=== PATIENT | male | born 1990 | race Caucasian/White ===

== ENCOUNTER → 2018-01-20 10:10 | Outpatient (CLI) | payer OTHER, SELFPAY ==
[2018-01-20 11:59] LABS: Absolute Lymphocyte Count 2.27 X10^3/ul (0.83-4.51); Absolute Neutrophil Count 3.8 X10^3/uL (2.0-7.7); Basophil# 0.01 X10^3/uL; Basophil% 0.1 % (0-1); Eosinophil# 0.26 X10^3/uL; Eosinophils% 3.8 % (0-5); Hemoglobin 15.1 g/dl (13.0-16.5); Lymphocyte # 2.27 X10^3/ul (4.0); Lymphocyte % 33.5 % (19-41); Mean Corp Hgb Conc 32.1 g/gl (32-36); Mean Corpuscular Hgb 28.6 pg (27.0-32.0); Mean Platelet Vol. 11.9 fl (6.2-12.0); Monocyte# 0.43 X10^3/uL; Monocyte% 6.3 % (0-10); Neutrophil # 3.79 X10^3/uL (2.7-7.7); POSITIVE COUNT NO; POSITIVE DIFFERENTIAL NO; POSITIVE MORPHOLOGY NO; Platelet Count 213 K/mm3 (150-450); RBC Distribution Width CV 14.1 % (11.6-14.6); RBC Distribution Width SD 45.6 fl (35.1-43.9); Red Blood Count 5.28 M/mm3 (4.6-6.2); White Blood Count 6.8 K/mm3 (4.4-11.0)
[2018-01-20 12:31] LABS: Microalbumin,Random Urine 30.3 mg/L (NO RANGE EST.); Microalbumin:Creatinine Ratio 36.6 mg/g CRE (<30 mg/g CRE)
[2018-01-20 12:41] LABS: ALB/GLOB Ratio 0.8 RATIO (0.9-2.4); AST(SGOT) 33 U/L (15-37); Alanine Aminotransfer ALT/SGPT 68 U/L (16-61); Albumin, Serum 3.3 g/dL (3.2-5.0); Alkaline Phosphatase 98 U/L (45-117); Anion Gap 8 (5-15); BUN 11 mg/dL (7-18); BUN/Creat Ratio 14.8 RATIO (10-20); Calcium,Total 8.9 mg/dL (8.5-10.1); Chloride 103 mmol/L (98-107); Cholesterol 192 mg/dL (200); Creatinine, Serum 0.74 mg/dL (0.70-1.30); EST Glomerular Filtration Rate 132 mL/min (>60); Est Glom Filt Rate - Afr Amer 160 mL/min (>60); Globulin 4.3 g/dL (2.2-4.2); Glucose 321 mg/dL (74-106); High Density Lipoprotein 26 mg/dL; Potassium 4.3 mmol/L (3.5-5.1); Protein, Total 7.6 g/dL (6.4-8.2); Sodium Level 138 mmol/L (136-145); Thyroid Stim Hormone (TSH) 1.73 uIU/mL (0.358-3.74)
== END ==
PROVIDERS: Family Provider Family Medicine; PCP Family Medicine; Visit Provider Family Medicine
DX: E11.9 Type 2 diabetes mellitus without complications (principal)
CPT/HCPCS: 36415; 80053; 82043; 82465; 82570; 83718; 84443; 85025

== ENCOUNTER 2018-04-13 15:40 | Outpatient (RCR) | payer MEDICAID, SELFPAY | END 2018-04-19 23:59 | LOC: DC 15:40 | PROVIDERS: Family Provider Family Medicine; PCP Family Medicine; Visit Provider Family Medicine | DX: E11.9 Type 2 diabetes mellitus without complications (principal); Z71.3 Dietary counseling and surveillance | CPT/HCPCS: G0108 ==

== ENCOUNTER 2019-04-23 13:04 | Emergency (ER) | payer BC, SELFPAY ==
[2019-04-23 13:05] VITALS: BP 155/80; PULSE 86; RESP 18; TEMP 36.6; O2SAT 95; BMI 57.9
--- NOTE | 2019-04-23 14:38 | EKG12_ITS ---
Test Reason : Blood Pressure : / mmHG Vent. Rate : 074 BPM Atrial Rate : 074 BPM P-R Int : 146 ms QRS Dur : 102 ms QT Int : 384 ms P-R-T Axes : 019 021 010 degrees QTc Int : 426 ms Normal sinus rhythm Normal ECG Confirmed by TUNDE HENDERSON, JAZ ([id number]), editor department DIANA COUGHLIN ([id number]) on 04/26/2019 10:17:01 AM Referred By: NOEMI Confirmed By:JAZ GRIFFITHS MD
--- NOTE | 2019-04-23 14:39 | ED.VIS.GEN ---
History of Present Illness Chief Complaint: Abd Pain Detail of Chief Complaint: Epigastric pain Informant: Patient Onset: Days Context: Gradual Onset Current Severity: Mild Maximum Severity: Mild Narrative: Patient presents with a couple day history of epigastric pain. He describes as a burning sensation. He thinks it slightly worsens with food. He denies history of reflux. He denies a history of pancreatitis or any recent alcohol consumption. No fever or chills. Only abdominal surgery was a periumbilical hernia repair. Past Medical History - Allergies and Home Meds Allergies/Adverse Reactions: Allergies erythromycin base Allergy (Verified 04/23/19 13:05) Hives lisinopril Allergy (Verified 04/23/19 13:05) Other Primary Care Physician: Librado Neal MD [Primary Care Provider] - Prior records reviewed: Yes Past Medical History: - - Reviewed Surgical History: - - Umbilical hernia Lives: With Family Smoking Status: Never smoker Review of Systems General: Denies: Chills, Fever Eyes: Denies: Visual changes - bilaterally ENT: Denies: Bilateral ear pain Cardiovascular: Denies: Chest pain Respiratory: Denies: Dyspnea, Cough Gastrointestinal: Reports: Abdominal pain, Nausea. Denies: Vomiting Genitourinary: Denies: Dysuria Musculoskeletal: Denies: Back pain Skin: Denies: Rash Neurological: Denies: Headache Hematologic: Denies: Easy bruising Allergy: Denies: Uticaria Physical Exam Vital Signs/Narrative: Vital Signs Temp Pulse Resp BP Pulse Ox 04/23/19 13:05 98 F 86 18 155/80 H 95 Inital Vital Signs reviewed: Yes General: Well nourished, Well developed ENT: Moist mucous membranes Cardiovascular: Regular rate, Regular rhythm Respiratory: No distress, CTA bilaterally Abdomen: Soft, Tender - Epigastric tenderness. Negative for: Guarding, Rebound tenderness Back: Nontender Extremities: Nontender Skin: Normal color Neurological: Alert, Oriented x3 Psychological: Normal affect Diagnostic/Tx/Re-eval Laboratory Results 04/23/19 04/23/19 14:47 14:47 WBC 9.4 RBC 5.49 Hgb 15.5 Hct 47.9 MCV 87.2 MCH 28.2 MCHC 32.4 RDW Std Deviation 46.5 H RDW Coeff of Pedro 14.6 Plt Count 213 MPV 10.7 Immature Gran % (Auto) 0.300 Neut % (Auto) 64.2 Lymph % (Auto) 26.1 [place] % (Auto) 6.5 Eos % (Auto) 2.7 Baso % (Auto) 0.2 Absolute Neuts (auto) 6.0 Absolute Lymphs (auto) 2.45 Nucleated RBC % 0 Sodium 142 Potassium 4.0 Chloride 108 H Carbon Dioxide 27.0 Anion Gap 7 BUN 16 Creatinine 0.77 Estim Creat Clear Calc 144.84 Est GFR (MDRD) Af Amer 151 Est GFR (MDRD) Non-Af 125 BUN/Creatinine Ratio 20.7 H Glucose 121 H Calcium 9.0 Total Bilirubin 0.40 Direct Bilirubin 0.05 AST 23 ALT 50 Alkaline Phosphatase 87 Total Protein 7.2 Albumin 3.3 Globulin 3.9 Lipase 227 - EKG Initial EKG Interpretation: Sinus Rhythm - Sinus at 74 with no sign of ischemia. - Medical Decision Making Patient was given a GI cocktail. On repeat evaluation he does feel improved. He will be given a prescription for Prilosec. ED Disposition - Plan for ED Patient: Disposition: Home or Assisted Living Diagnosis: Gastritis Instructions: GASTRITIS (Adult) Prescriptions: Omeprazole [Prilosec] 20 mg PO DAILY #30 capsule Referrals: Librado Neal MD [Primary Care Provider] - 10-14 Days if not better
[2019-04-23 14:55] LABS: Absolute Lymphocyte Count 2.45 X10^3/uL (0.83-4.51); Basophil# 0.02 X10^3/uL; Basophil% 0.2 % (0-1); Eosinophil# 0.25 X10^3/uL; Eosinophils% 2.7 % (0-5); Hematocrit 47.9 % (40-54); Hemoglobin 15.5 g/dL (13.0-16.5); Lymphocyte # 2.45 X10^3/ul (4.0); Lymphocyte % 26.1 % (19-41); Mean Corp Hgb Conc 32.4 g/dL (32-36); Mean Corpuscular Hgb 28.2 pg (27.0-32.0); Mean Corpuscular Volume 87.2 fL (80-94); Mean Platelet Vol. 10.7 fl (6.2-12.0); Monocyte# 0.61 X10^3/uL; Monocyte% 6.5 % (0-10); NRBC Flagged by Analyzer 0 % (0-5); Neutrophil # 6.04 X10^3/uL (2.7-7.7); Neutrophil % 64.2 % (47-70); Platelet Count 213 K/mm3 (150-450); RBC Distribution Width CV 14.6 % (11.6-14.6); RBC Distribution Width SD 46.5 fl (35.1-43.9); Red Blood Count 5.49 M/mm3 (4.6-6.2); White Blood Count 9.4 K/mm3 (4.4-11.0)
[2019-04-23] MEDS: Mag Hydrox/Al Hydrox/Simeth 30 ML UDC PO (14:58)
[2019-04-23] MEDS: 0.9% Normal Saline 1,000 ML 150 ML IV (14:58)
[2019-04-23 15:13] LABS: AST(SGOT) 23 U/L (15-37); Alanine Aminotransfer ALT/SGPT 50 U/L (16-61); Albumin, Serum 3.3 g/dL (3.2-5.0); Alkaline Phosphatase 87 U/L (45-117); Anion Gap 7 (5-15); BUN 16 mg/dL (7-18); BUN/Creat Ratio 20.7 RATIO (10-20); Bilirubin, Direct 0.05 mg/dL (0.00-0.30); Chloride 108 mmol/L (98-107); Creatinine, Serum 0.77 mg/dL (0.70-1.30); EST Glomerular Filtration Rate 125 mL/min (>60); Est Glom Filt Rate - Afr Amer 151 mL/min (>60); Estimated Creatinine Clearance 144.84 ml/min; Globulin 3.9 g/dL (2.2-4.2); Glucose 121 mg/dL (74-106); Lipase 227 U/L (73-393); Protein, Total 7.2 g/dL (6.4-8.2); Sodium Level 142 mmol/L (136-145)
[2019-04-23 16:20] VITALS: BP 127/82; PULSE 79; RESP 18; O2SAT 93
== END 2019-04-23 16:21 | disposition home or self-care (01) ==
PROVIDERS: Emergency Provider Emergency Medicine; Family Provider Family Medicine; PCP Family Medicine
DX: K29.70 Gastritis, unspecified, without bleeding (principal); Z79.899 Other long term (current) drug therapy; Z88.1 Allergy status to other antibiotic agents; Z88.8 Allergy status to other drugs, medicaments and biological substances
CPT/HCPCS: 80048; 80076; 83690; 85025; 93005; 96360; 99285; J7030; A4216

== ENCOUNTER → 2019-06-08 13:06 | Outpatient (CLI) | payer BC, SELFPAY ==
[2019-06-08 14:18] LABS: Microalbumin,Random Urine 19.8 mg/L (NO RANGE EST.); Microalbumin:Creatinine Ratio 17.5 mg/g CRE (<30 mg/g CRE)
[2019-06-08 14:49] LABS: Hemoglobin A1c 7.1 % (4.2-6.3)
[2019-06-08 14:55] LABS: ALB/GLOB Ratio 0.7 RATIO (0.9-2.4); AST(SGOT) 29 U/L (15-37); Alanine Aminotransfer ALT/SGPT 47 U/L (16-61); Albumin, Serum 3.1 g/dL (3.2-5.0); Alkaline Phosphatase 88 U/L (45-117); Anion Gap 6 (5-15); BUN 10 mg/dL (7-18); Calcium,Total 9.1 mg/dL (8.5-10.1); Chloride 105 mmol/L (98-107); Cholesterol 195 mg/dL (200); Creatinine, Serum 0.59 mg/dL (0.70-1.30); EST Glomerular Filtration Rate 171 mL/min (>60); Est Glom Filt Rate - Afr Amer 207 mL/min (>60); Globulin 4.3 g/dL (2.2-4.2); Glucose 122 mg/dL (74-106); High Density Lipoprotein 36 mg/dL; Potassium 4.2 mmol/L (3.5-5.1); Protein, Total 7.4 g/dL (6.4-8.2); Sodium Level 140 mmol/L (136-145); Triglycerides 181 mg/dL; Very Low Density Lipoprotein 36 mg/dL (5-40)
== END ==
LOC: LAB 13:09
PROVIDERS: Family Provider Family Medicine; PCP Family Medicine; Referring Provider Family Medicine; Visit Provider Family Medicine
DX: E11.9 Type 2 diabetes mellitus without complications (principal)
CPT/HCPCS: 36415; 80053; 80061; 82043; 82570; 83036

== ENCOUNTER → 2019-10-16 10:30 | Outpatient (CLI) | payer BC, SELFPAY ==
[2019-10-16 12:49] LABS: ALB/GLOB Ratio 0.7 RATIO (0.9-2.4); AST(SGOT) 16 U/L (15-37); Alanine Aminotransfer ALT/SGPT 36 U/L (16-61); Albumin, Serum 3.4 g/dL (3.2-5.0); Alkaline Phosphatase 97 U/L (45-117); Anion Gap 6 (5-15); BUN 14 mg/dL (7-18); BUN/Creat Ratio 18.8 RATIO (10-20); Calcium,Total 9.3 mg/dL (8.5-10.1); Chloride 107 mmol/L (98-107); Cholesterol 217 mg/dL (200); Creatinine, Serum 0.74 mg/dL (0.70-1.30); EST Glomerular Filtration Rate 130 mL/min (>60); Est Glom Filt Rate - Afr Amer 157 mL/min (>60); Globulin 4.8 g/dL (2.2-4.2); Glucose 132 mg/dL (74-106); High Density Lipoprotein 44 mg/dL; Protein, Total 8.2 g/dL (6.4-8.2); Sodium Level 139 mmol/L (136-145); Thyroid Stim Hormone (TSH) 1.58 uIU/mL (0.358-3.74); Triglycerides 181 mg/dL; Very Low Density Lipoprotein 36 mg/dL (5-40)
[2019-10-16 12:53] LABS: Hemoglobin A1c 6.8 % (4.2-6.3)
[2019-10-16 13:27] LABS: Microalbumin,Random Urine 11.7 mg/L (NO RANGE EST.); Microalbumin:Creatinine Ratio 14.5 mg/g CRE (<30 mg/g CRE)
== END ==
PROVIDERS: PCP Family Medicine; Referring Provider Family Medicine; Visit Provider Family Medicine
DX: E11.9 Type 2 diabetes mellitus without complications (principal)
CPT/HCPCS: 36415; 80053; 80061; 82043; 82570; 83036; 84443

== ENCOUNTER → 2020-04-09 11:57 | Outpatient (CLI) | payer BC, SELFPAY ==
[2020-04-09 15:40] LABS: ALB/GLOB Ratio 0.8 RATIO (0.9-2.4); AST(SGOT) 19 U/L (15-37); Alanine Aminotransfer ALT/SGPT 42 U/L (16-61); Albumin, Serum 3.4 g/dL (3.2-5.0); Alkaline Phosphatase 88 U/L (45-117); Anion Gap 3 (5-15); BUN 13 mg/dL (7-18); BUN/Creat Ratio 20.6 RATIO (10-20); Calcium,Total 9.1 mg/dL (8.5-10.1); Chloride 106 mmol/L (98-107); Cholesterol 204 mg/dL (200); Creatinine, Serum 0.63 mg/dL (0.70-1.30); EST Glomerular Filtration Rate 157 mL/min (>60); Est Glom Filt Rate - Afr Amer 190 mL/min (>60); Globulin 4.2 g/dL (2.2-4.2); Glucose 169 mg/dL (74-106); High Density Lipoprotein 36 mg/dL; Potassium 4.3 mmol/L (3.5-5.1); Protein, Total 7.6 g/dL (6.4-8.2); Sodium Level 140 mmol/L (136-145)
== END ==
PROVIDERS: PCP Family Medicine; Referring Provider Family Medicine; Visit Provider Family Medicine
DX: E11.9 Type 2 diabetes mellitus without complications (principal)
CPT/HCPCS: 36415; 80053; 82465; 83718

== ENCOUNTER → 2024-02-02 | Outpatient (CLI) | payer MEDICAID, SELFPAY ==
--- NOTE | 2024-02-02 06:57 | RAD_ITS ---
EXAM: XR LUMBOSACRAL SPINE, 4 OR 5 VIEWS CLINICAL INDICATION: PARESTHESIA OF EXTREMITIES -- -- BEST IMAGES POSSIBLE DUE TO PT HABITUS TECHNIQUE: Frontal, lateral and bilateral oblique views of the lumbar spine. COMPARISON: No relevant prior studies available. FINDINGS: LIMITATIONS: Very large body habitus significantly limits the exam. VERTEBRAE: Unremarkable. Preserved vertebral body height. No fracture. No spondylolisthesis. Preservation of the normal lumbar lordosis. No significant facet arthropathy. DISC SPACES: No acute findings. Disc spaces are maintained. GASTROINTESTINAL TRACT: Unremarkable as visualized. Included bowel gas pattern is non-obstructive. RAD/L/S Spine Min 4 Views IMPRESSION: Large body habitus limits the exam. No specific abnormality. Electronically Signed: Ricky Yeboah MD at 7:49 EDT ,
--- NOTE | 2024-02-02 15:15 | NEURO ---
NCS and/or EMG Patient Report Ordering Doctor: Sanju Diaz DATE OF SERVICE: 02/02/24 Skyler Presents with complaints of intermittent numbness and tingling in the lower legs. He does report history of diabetes. Electrodiagnostic findings: Right peroneal motor nerve demonstrates normal distal latency, amplitude and conduction velocity. Left peroneal motor nerve demonstrates normal distal latency, amplitude and conduction velocity. Right tibial motor nerve demonstrates normal distal latency with reduced amplitude and normal conduction velocity left tibial motor nerve demonstrates normal distal latency with reduced amplitude and normal conduction velocity. Normal peroneal and tibial F?waves. 1H?reflex bilaterally. Normal sural, superficial peroneal and medial plantar response bilaterally. Needle EMG testing was performed in the lower limbs. All muscles tested showed no evidence of denervation with normal motor unit action potentials. Electrodiagnostic impression: This is an abnormal study of the lower limbs 1. 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 There is no electrodiagnostic evidence for tarsal tunnel syndrome. This could be potentially related to his history of diabetes and may be initial evidence of developing polyneuropathy. Would consider repeat study in 6-12 months if symptoms progress. 2. There is no electrodiagnostic evidence for lumbosacral radiculopathy. Multi Select Codes Neurology Neurology Interp Codes: 06281-26 Musc test done w/n test comp (interp) and 51117-42 Nrv cndj test 11-12 studies (interp)
== END | disposition home or self-care (01) ==
PROVIDERS: PCP Internal Medicine; Referring Provider Podiatrist; Visit Provider Podiatrist
DX: R20.2 Paresthesia of skin (principal)
CPT/HCPCS: 72110; 95886; 95912

== ENCOUNTER → 2024-10-12 | Outpatient (CLI) | payer MEDICAID, SELFPAY ==
[2024-10-12 13:35] LABS: ALB/GLOB Ratio 0.8 RATIO (0.9-2.4); AST(SGOT) 20 U/L (15-37); Alanine Aminotransfer ALT/SGPT 29 U/L (16-61); Albumin, Serum 3.2 g/dL (3.2-5.0); Alkaline Phosphatase 88 U/L (45-117); Anion Gap 6 (5-15); BUN 12 mg/dL (7-18); BUN/Creat Ratio 20.3 RATIO (10-20); Calcium,Total 9.1 mg/dL (8.5-10.1); Chloride 106 mmol/L (98-107); Cholesterol 162 mg/dL (200); Creatinine, Serum 0.59 mg/dL (0.70-1.30); EST Glomerular Filtration Rate 165 mL/min (>60); Est Glom Filt Rate - Afr Amer 199 mL/min (>60); Glucose 134 mg/dL (74-106); High Density Lipoprotein 49 mg/dL; Potassium 3.8 mmol/L (3.5-5.1); Protein, Total 7.2 g/dL (6.4-8.2); Sodium Level 139 mmol/L (136-145); Triglycerides 175 mg/dL; Very Low Density Lipoprotein 35 mg/dL (5-40); Vitamin D,25 Hydroxy 32.8 ng/mL
[2024-10-12 13:38] LABS: Hemoglobin A1c 6.3 % (3.8-5.6)
== END | disposition home or self-care (01) ==
LOC: LAB 12:05
PROVIDERS: PCP Internal Medicine; Referring Provider Internal Medicine; Visit Provider Internal Medicine
DX: E11.9 Type 2 diabetes mellitus without complications (principal); E78.5 Hyperlipidemia, unspecified; E55.9 Vitamin D deficiency, unspecified
CPT/HCPCS: 36415; 80053; 80061; 82306; 83036

== ENCOUNTER → 2025-02-02 | Outpatient (CLI) | payer OTHER, SELFPAY ==
--- NOTE | 2025-02-02 14:12 | US_ITS ---
PROCEDURE: KIDNEY AND BLADDER 02/02/2025 REASON FOR EXAM: URGE INCONTINENCE TECHNIQUE: Bilateral renal ultrasound. COMPARISON: None FINDINGS: RIGHT Kidney Size: 11.4 cm x 7.2 cm x 6.8 cm Volume: 287.65 mL Cortical Thickness (if discernible): 2.1 cm (>6mm is normal) LEFT Kidney Size: 11.9 cm x 6.2 cm x 6.6 cm Volume: 255.31 mL Cortical Thickness (if discernible): 2.2 cm (>6mm is normal) Bladder: Unremarkable US/Kidney and Bladder IMPRESSION: NORMAL RENAL ULTRASOUND. Reading Location: [id number]
== END | disposition home or self-care (01) ==
PROVIDERS: PCP Internal Medicine; Referring Provider Urology; Visit Provider Urology
DX: N39.41 Urge incontinence (principal)
CPT/HCPCS: 76770